=== PATIENT | female | born 1965 | race American Indian/Alaskan Native ===

== ENCOUNTER 2018-05-16 14:29 | Outpatient (CLI) | payer OTHER ==
--- NOTE | 2018-05-16 15:53 | Mammography Report ---
BILATERAL DIGITAL SCREENING MAMMOGRAM with CAD: 05/16/18 14:29:00 CLINICAL: Routine screening. COMPARISON:04/27/16 FINDINGS: The breasts are heterogeneously dense, which may obscure small masses. No mass, architectural distortion or suspicious calcifications. IMPRESSION: No mammographic evidence of malignancy. BI-RADS CATEGORY: 1 - - Negative RECOMMENDATION: Routine mammographic screening in one year. COMMENT: Patient follow-up letters are generated by our [employer] application.
== END 2018-05-16 14:30 | disposition home or self-care (01) ==
LOC: SPVWC 14:29
PROVIDERS: ATTEND Internal Medicine
DX: Z12.31 Encounter for screening mammogram for malignant neoplasm of breast (principal); I10 Essential (primary) hypertension; Z90.710 Acquired absence of both cervix and uterus
CPT/HCPCS: 77067

== ENCOUNTER 2019-06-06 08:11 | Outpatient (CLI) | payer BC ==
--- NOTE | 2019-06-06 09:21 | Mammography Report ---
DIGITAL SCREENING MAMMOGRAM WITH CAD, 06/06/2019 INDICATION: Routine screening mammography. TECHNIQUE: Digital bilateral 2D mammography was obtained in the craniocaudal and mediolateral obliq ue projections. This examination was interpreted with the benefit of Computer-Aided Detection analysi s. COMPARISON: 05/16/2018 and 04/27/2016 FINDINGS: Breast Density: The breasts are heterogeneously dense, which may obscure small masses. A right inner asymmetry on the CC view requires additional imaging. No architectural distortion or lyle spicious calcifications. There is no evidence of dominant mass, suspicious calcifications or architec tural distortion in the left breast. IMPRESSION: Right asymmetry requiring additional imaging. Recommend recall for right lateral medial a nd spot magnification CC views and right breast ultrasound if needed. Follow up recommendation: Special View: Mag Category 0: Incomplete. Needs additional imaging evaluation and/or prior mammograms for comparison. A "normal" or negative report should not discourage follow up or biopsy of a clinically significant f inding. A written summary of these findings will be mailed to the patient. The patient will be entered into a mammography reporting system which will generate a reminder letter for the patient's next appointmen t at the appropriate interval. The [employer] recommends yearly mammograms starting at age 40 and continuing as l loren as a woman is in good health. Breast MRI is recommended for women with an approximate 20-25% or greater lifetime risk of breast cancer, including women with a strong family history of breast or ova freddie cancer or who have been treated for Hodgkin's disease. Signer Name: Hoang Duffy MD Signed: 06/06/2019 9:17 AM Workstation Name: [id number]
== END 2019-06-06 08:12 | disposition home or self-care (01) ==
LOC: SPVWC 08:11
PROVIDERS: ATTEND Internal Medicine
DX: Z12.31 Encounter for screening mammogram for malignant neoplasm of breast (principal)
CPT/HCPCS: 77067

== ENCOUNTER 2021-02-12 09:12 | Outpatient (CLI) | payer BC ==
--- NOTE | 2021-02-12 11:45 | Mammography Report ---
DIGITAL SCREENING MAMMOGRAM WITH CAD, 02/12/2021 CLINICAL INFORMATION / INDICATION: Routine screening mammography. SCREENING MAMMO TECHNIQUE: Digital bilateral 2D mammography was obtained in the craniocaudal and mediolateral obliqu e projections. This examination was interpreted with the benefit of Computer-Aided Detection analysis . COMPARISON: 04/27/2016 through 06/06/2019. FINDINGS: Breast Density: The breasts are extremely dense, which lowers the sensitivity of mammography. No dominant mass, suspicious calcifications, or architectural distortion in either breast. IMPRESSION: No mammographic evidence of malignancy. Follow up recommendation: Routine yearly BI-RADS Category 1: Negative. A "normal" or negative report should not discourage follow up or biopsy of a clinically significant f inding. A written summary of these findings will be mailed to the patient. The patient will be entered into a mammography reporting system which will generate a reminder letter for the patient's next appointmen t at the appropriate interval. The [employer] recommends yearly mammograms starting at age 40 and continuing as l loren as a woman is in good health. Breast MRI is recommended for women with an approximate 20-25% or greater lifetime risk of breast cancer, including women with a strong family history of breast or ova freddie cancer or who have been treated for Hodgkin's disease. Signer Name: Virgil Ivory MD Signed: 02/12/2021 11:40 AM Workstation Name: [id number]
== END 2021-02-12 09:13 | disposition home or self-care (01) ==
LOC: SPVWC 09:12
PROVIDERS: ATTEND Internal Medicine
DX: Z12.31 Encounter for screening mammogram for malignant neoplasm of breast (principal)
CPT/HCPCS: 77067